=== PATIENT | female | born 1985 | race Caucasian/White ===

== ENCOUNTER 2022-09-26 06:04 | Emergency (ER) | payer MEDICAID, OTHER ==
[~2022-09-26] VITALS: Ht 162.6 cm; Wt 68.0 kg
[2022-09-26] MEDS ORDERED: DIPHENHYDRAMINE 50MG CAPSULE PO STA (06:33)
[2022-09-26 07:06] LABS: CHLORIDE 104 mEq/L (98-107); INDEX HEMOLYSI 1 (1-3); INDEX ICTERIC 1 (1-4); INDEX LIPEMIC 1 (1-3); SODIUM 137 mEq/L (136-145)
[2022-09-26 07:09] LABS: HCG SCREEN NEGATIVE
[2022-09-26 07:13] LABS: BASOPHILS % 0.5 % (0.0-2.0); EOSINOPHILS % 0.8 % (0.0-5.0); HEMATOCRIT. 33.8 % (36.0-48.0); HEMOGLOBIN. 11.4 g/dL (12.0-16.0); LYMPHOCYTES % 35.3 % (20.0-50.0); MEAN CORPUSCULAR HEMOGLOBIN 31.2 pg (28.0-32.0); MEAN CORPUSCULAR HGB CONC 33.8 g/dL (31.0-37.0); MEAN CORPUSCULAR VOLUME 92.3 fL (81.0-99.0); MEAN PLATELET VOLUME 7.8 fl (7.4-10.4); MONOCYTES % 7.7 % (2.0-8.0); NEUTROPHILS % 55.7 % (40.0-76.0); PLATELET 222 x1000/uL (130-400); RED BLOOD CELL COUNT 3.66 mill/uL (4.2-5.4); RED CELL DISTRIBUTION WIDTH 16.6 % (11.6-14.6); WHITE BLOOD COUNT 8.6 x1000/uL (4.5-11.0)
[2022-09-26 07:15] LABS: ACETAMINOPHEN <2 ug/mL ug/mL (10-30); ALANINE AMINOTRANSFERASE 81 IU/L (13-61); ALBUMIN 3.7 g/dL (3.4-5.0); ASPARTATE AMINOTRANSFERASE 87 IU/L (15-37); BILIRUBIN TOTAL 0.2 mg/dL (0.1-1.0); CALCIUM 8.2 mg/dL (8.5-10.1); CARBON DIOXIDE 25 mEq/L (21-32); CREATININE 0.5 mg/dL (0.6-1.3); GLUCOSE 94 mg/dL (70-105); PROTEIN TOTAL 7.7 g/dL (6.0-8.3); UREA NITROGEN BLOOD 5 mg/dL (7-21)
[2022-09-26 07:25] LABS: POTASSIUM 2.7 mEq/L (3.5-5.1)
[2022-09-26] MEDS: LORAZEPAM 2MG/ML CPJ IM STA (07:30)
[2022-09-26] MEDS: DIPHENHYDRAMINE 25MG CAPSULE PO NR (07:30)
[2022-09-26] MEDS ORDERED: KCL 10MEQ/50ML PREMIX 100 ML IV SCH (07:45)
[2022-09-26] MEDS: KCL 20MEQ/100ML PREMIX 100 ML IV NR (08:00)
[2022-09-26 08:32] LABS: ETHANOL BLOOD 412 mg/dL (-10)
[2022-09-26] MEDS: SODIUM CHLORIDE 0.9% 1,000 ML IV ONE (08:45)
[2022-09-26 08:48] LABS: CLARITY URINE TURBID (CLEAR); COLOR URINE YELLOW (YELLOW); GLUCOSE URINE NEGATIVE (NEGATIVE); KETONES URINE TRACE (NEGATIVE); LEUKOCYTE ESTERASE URINE 3+ (NEGATIVE); NITRITE URINE POSITIVE (NEGATIVE); OCCULT BLOOD URINE NEGATIVE (NEGATIVE); PH URINE 5.5 (4.5-8.0); PROTEIN URINE 1+ (NEGATIVE); SPECIFIC GRAVITY URINE 1.016 (1.005-1.030); UROBILINOGEN URINE 0.2 E.U./dL (0.2-1.0)
[2022-09-26 09:17] LABS: MUCUS URINE TRACE /lpf (< = 2+); SQUAMOUS EPITHELIAL CELL URINE 2+ /lpf (RARE/1+)
[2022-09-26 09:18] LABS: WBC URINE 25-50 /hpf (0-2)
[2022-09-26 09:19] LABS: BACTERIA URINE 3+; RBC URINE NONE SEEN /hpf (0-2)
[2022-09-26 09:38] LABS: *AMPHETAMINES SCREEN URINE NEGATIVE (NEGATIVE); *BARBITURATES SCREEN URINE NEGATIVE (NEGATIVE); *BENZODIAZEPINES SCREEN URINE NEGATIVE (NEGATIVE); *COCAINE SCREEN URINE NEGATIVE (NEGATIVE); CANNABINOID URINE SCREEN NEGATIVE (NEGATIVE); ECSTASY MDMA SCREEN URINE NEGATIVE (NEGATIVE); METHADONE URINE SCREEN NEGATIVE (NEGATIVE); OPIATES URINE SCREEN NEGATIVE (NEGATIVE); PHENCYCLIDINE URINE SCREEN NEGATIVE (NEGATIVE)
[2022-09-26] MEDS: CEFTRIAXONE 2 G in DEXTROSE 5% WATER 50 ML IV SCH (10:00)
[2022-09-26 11:40] VITALS: O2SAT 98
[2022-09-26 16:34] LABS: CARBON DIOXIDE 23 mEq/L (21-32); CHLORIDE 110 mEq/L (98-107); GLUCOSE 82 mg/dL (70-105); INDEX HEMOLYSI 1 (1-3); INDEX ICTERIC 1 (1-4); INDEX LIPEMIC 1 (1-3); POTASSIUM 3.4 mEq/L (3.5-5.1); SODIUM 136 mEq/L (136-145); UREA NITROGEN BLOOD 7 mg/dL (7-21)
[2022-09-26 16:35] LABS: CREATININE 0.6 mg/dL (0.6-1.3)
[2022-09-26 16:56] VITALS: BP 121/80; PULSE 88; RESP 18; TEMP 98.6
[2022-09-26] MEDS: LORAZEPAM 2MG/ML CPJ IV ONE (17:00)
== END 2022-09-26 18:20 | disposition left against medical advice (07) ==
LOC: ER 06:04
DX: R45.851 Suicidal ideations (principal); N39.0 Urinary tract infection, site not specified; E87.6 Hypokalemia; F17.200 Nicotine dependence, unspecified, uncomplicated
CPT/HCPCS: 80053; 80305; 80048; 81003; 80307; 80329; 80320; 84703; 85025; 87086; 36415; 93005; 96368; 96365; 96366; 96372; 99285; Q0163; J0696; J2060; J3480; J7060; Z7610 ×2; G0480